=== PATIENT | male | born 1980 | race Hispanic/Latino ===

== ENCOUNTER 2018-05-06 08:29 | Emergency (ER) | payer SELFPAY ==
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
--- NOTE | 2018-05-06 11:34 | RAD REPORT ---
EXAM DESCRIPTION: RAD - Lumbar Spine 3 Views - 05/06/2018 9:12 am CLINICAL HISTORY: PAIN Radiculopathy COMPARISON: No comparisons FINDINGS: Vertebral body heights appear maintained. No compression fracture noted. Mild disc thinnin g with small endplate osteophytes at L5-S1. No spondylolysis or spondylolisthesis. IMPRESSION: Mild L5-S1 spondylosis.
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
== END 2018-05-06 10:30 | disposition home or self-care (01) ==
LOC: ER 08:29
DX: S30.0XXA Contusion of lower back and pelvis, initial encounter (principal); V49.40XA Driver injured in collision with unspecified motor vehicles in traffic accident, initial encounter; M47.816 Spondylosis without myelopathy or radiculopathy, lumbar region
CPT/HCPCS: 72100; 72170; 99284